=== PATIENT | female | born 1985 | race African-American/Black ===

== ENCOUNTER 2023-07-30 08:23 | Emergency (ER) | payer MEDICAID ==
[~2023-07-30] VITALS: Ht 175.3 cm; Wt 93.2 kg
[2023-07-30 08:59] VITALS: BP 135/89; PULSE 71; RESP 18; TEMP 97.8; O2SAT 98
[2023-07-30] MEDS ORDERED: PENI250T2 PO (09:00)
[2023-07-30] MEDS ORDERED: NAPR-56 PO (09:00)
[2023-07-30] MEDS ORDERED: naproxen 500mg tablet PO ONE (09:20)
== END 2023-07-30 09:38 | disposition home or self-care (01) ==
LOC: ER 08:24
DX: K02.9 Dental caries, unspecified (principal); Z79.899 Other long term (current) drug therapy
CPT/HCPCS: 99283

== ENCOUNTER 2023-08-11 13:16 | Emergency (ER) | payer MEDICAID ==
[~2023-08-11] VITALS: Ht 175.3 cm; Wt 90.4 kg
[~2023-08-11 13:16] MED LIST: NAPR-56 PO
[2023-08-11 13:30] VITALS: BP 149/105; PULSE 84; RESP 16; TEMP 98.2; O2SAT 100
[2023-08-11] MEDS ORDERED: acetaminophen 325mg tablet PO ONE (13:50)
[2023-08-11] MEDS ORDERED: TRAM50TA2 PO (13:52)
== END 2023-08-11 14:20 | disposition home or self-care (01) ==
LOC: ER 13:16
DX: K02.9 Dental caries, unspecified (principal); F12.90 Cannabis use, unspecified, uncomplicated; Z72.89 Other problems related to lifestyle; Z98.890 Other specified postprocedural states; Z88.6 Allergy status to analgesic agent
CPT/HCPCS: 99283

== ENCOUNTER 2024-03-12 10:49 | Emergency (ER) | payer MEDICAID ==
[~2024-03-12] VITALS: Ht 175.3 cm; Wt 84.7 kg
[2024-03-12] MEDS ORDERED: AMOX500C2 PO (13:12)
[2024-03-12] MEDS: amoxicillin 250mg capsule PO ONE (13:28)
[2024-03-12] MEDS ORDERED: IBUP-1984 PO (13:32)
[2024-03-12] MEDS: ibuprofen tablet 400 MG TABLET PO ONE (13:40)
[2024-03-12 13:45] VITALS: BP 144/79; PULSE 99; RESP 18; TEMP 98.3; O2SAT 99
== END 2024-03-12 13:43 | disposition home or self-care (01) ==
LOC: ER 10:50
DX: K04.7 Periapical abscess without sinus (principal); K02.9 Dental caries, unspecified; K00.6 Disturbances in tooth eruption; F12.90 Cannabis use, unspecified, uncomplicated; Z79.2 Long term (current) use of antibiotics; Z98.890 Other specified postprocedural states
CPT/HCPCS: 99283